=== PATIENT | female | born 1970 | race Caucasian/White ===

== ENCOUNTER 2018-08-07 19:01 | Emergency (ER) | payer OTHER ==
[~2018-08-07] VITALS: Ht 154.9 cm; Wt 68.0 kg
[~2018-08-07 19:01] MED LIST: GABA100C PO; INSU100S22 SUBQ; METF1000 PO; MIC5 PO; STA120 PO
[2018-08-07 19:30] VITALS: BP 172/101
--- NOTE | 2018-08-07 19:40 | NUR ---
EKG DONE IN TRIAGE, PT SENT TO LOBBY EVEN STEADY GAIT, W/ DAUGHTER.
--- NOTE | 2018-08-07 21:09 | NUR ---
PT TO ER BED 1 EVEN STEADY GAIT, W/ DAUGHTER.
--- NOTE | 2018-08-07 21:20 | NUR ---
48yo F TO ER W/C/O INTERMITTENT CHEST PRESSURE/PAIN X4 DAYS RADIATING TO L JAW, L ARM, L LEG, PT STATES EPISODES OF SOB AND BURNING FROM EPIGASTRIC REGION WITH INTERMITENT PAIN. 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 PT DENIES ANY CURRENT SOB, FEVERS, N/V/D AT THIS TIME. ABD SOFT NON TENDER. PMH DM, HTN ALLERGY TO MEDICATION FOR DM BUT CANNOT RECALL NAME.
--- NOTE | 2018-08-07 22:55 | NUR ---
DR YOON AT BEDSIDE FOR PT EVALUATION
[2018-08-07] MEDS ORDERED: NACL 0.9% 1,000 ML IV ONE (23:05)
[2018-08-07] MEDS ORDERED: KETOROLAC 30 MG/ML VIAL IVP ONE (23:05)
[2018-08-07 23:37] LABS: BASOPHILS # (AUTO) 0.1 K/uL (0.00-0.22); BASOPHILS % (AUTO) 0.8 % (0.0-2.0); EOSINOPHILS # (AUTO) 0.3 K/uL (0-0.4); EOSINOPHILS % (AUTO) 3.4 % (0.0-4.0); HEMATOCRIT 34.8 % (36-48); HEMOGLOBIN 11.4 g/dL (12.0-16.0); LYMPHOCYTES # (AUTO) 3.2 K/uL (2.5-16.5); LYMPHOCYTES % (AUTO) 34.9 % (20.5-51.1); MEAN CORPUSCULAR HEMOGLOBIN 27 pg (27-31); MEAN CORPUSCULAR HGB CONC 33 g/dL (33-37); MEAN CORPUSCULAR VOLUME 83.6 fL (80-94); MONOCYTES # (AUTO) 0.6 K/uL (0.8-1.0); NEUTROPHILS # (AUTO) 4.9 K/uL (1.8-7.7); NEUTROPHILS % (AUTO) 53.9 % (42.2-75.2); PLATELET COUNT (AUTO) 307 K/uL (140-450); RED BLOOD CELL COUNT(AUTO) 4.17 MIL/uL (4.20-5.40); RED CELL DISTRIBUTION WIDTH 15.8 % (11.6-13.7); WHITE BLOOD COUNT (AUTO) 9.1 K/uL (4.8-10.8)
[2018-08-07 23:46] LABS: ANION GAP 5.2 (8-16); CARBON DIOXIDE 27.8 mmol/L (21-32)
[2018-08-07 23:52] LABS: ALBUMIN 3.5 g/dL (3.4-5.0); TOTAL BILIRUBIN 0.2 mg/dL (0.0-1.0)
[2018-08-08 00:24] VITALS: BP 159/76
== END 2018-08-08 00:24 | disposition home or self-care (01) ==
LOC: MED 19:01
DX: R07.89 Other chest pain (principal); E11.9 Type 2 diabetes mellitus without complications; I10 Essential (primary) hypertension; Z79.899 Other long term (current) drug therapy
CPT/HCPCS: 36415; 71045; 80053; 82948; 84484; 85025; 93005; 96374; 99285; J1885; J7030

== ENCOUNTER 2019-07-17 17:41 | Emergency (ER) | payer OTHER ==
[~2019-07-17] VITALS: Ht 152.4 cm; Wt 67.6 kg
[2019-07-17 17:47] VITALS: BP 102/59
--- NOTE | 2019-07-17 18:07 | NUR ---
PATIENT PRESENTS TO ED WITH C/O HEADACHE, BLURRY VISION, AND DIZZINESS X 1 DAY. PER PT DAUGHTER, HER FSBS WAS OVER 400 LAST NIGHT, AND ABOUT 250 EARLIER TODAY. FSBS 79 AT THIS TIME. PT STATES SHE GAVE HERSELF 10 UNITS OF HUMALOG AROUND 1530. PT STATED SHE WANTED TO COME IN TO SEE IF IT WAS HER BP CAUSING THE SYMPTOMS. BP 102/59 AT THIS TIME. HX: DM, ANXIETY, AND HTN . DENIES PAIN, VSS; PATIENT POSITIONED FOR COMFORT; HOB ELEVATED; BEDRAILS UP X2; BED DOWN. ER MD MADE AWARE OF PT STATUS.
--- NOTE | 2019-07-17 19:10 | NUR ---
REPORT GIVEN TO SPORTS MANAGEMENT INTERNSHIP NURSE FOR CONTINUE OF CARE.
--- NOTE | 2019-07-17 19:24 | NUR ---
Dr. Mitchell examining patient.
[2019-07-17] MEDS ORDERED: guaiFENesin DM 200/20 MG-10 ML 10 ML UDC PO STA (19:33)
--- NOTE | 2019-07-17 19:40 | NUR ---
XRAY AT BEDSIDE
[2019-07-17 22:40] VITALS: BP 122/61
--- NOTE | 2019-07-17 22:40 | NUR ---
Patient discharged with v/s stable. Written and verbal after care instructions given and explained. Patient verbalized understanding. Ambulatory with steady gait. All questions addressed prior to discharge. Advised to follow up with PMD.
== END 2019-07-17 22:40 | disposition home or self-care (01) ==
LOC: MED 17:41
DX: R51 Headache (principal); R42 Dizziness and giddiness; H53.8 Other visual disturbances; E11.9 Type 2 diabetes mellitus without complications; I10 Essential (primary) hypertension; Z79.4 Long term (current) use of insulin; Z79.899 Other long term (current) drug therapy
CPT/HCPCS: 71045; 81002; 81025; 82948; 99284

== ENCOUNTER 2019-12-02 11:17 | Emergency (ER) | payer OTHER ==
[~2019-12-02] VITALS: Ht 160 cm; Wt 60.8 kg
[2019-12-02 11:47] VITALS: BP 167/72
--- NOTE | 2019-12-02 12:04 | NUR ---
EKG IN TRIAGE AND THEN PT TO ER LOBBY, VS STABLE
--- NOTE | 2019-12-02 12:13 | NUR ---
URINE COLLECTED IN TRIAGE
--- NOTE | 2019-12-02 12:25 | NUR ---
PT AMBULATED TO BED 02
--- NOTE | 2019-12-02 12:30 | NUR ---
c/o chest pain x 1 week. heart sound s1s2 present. no sob. no distress noted. lung sounds clear all thorughout. a & o x4. steady gait. vss. cap refill < 3. nka.
[2019-12-02 13:31] VITALS: BP 167/72
== END 2019-12-02 13:30 | disposition home or self-care (01) ==
LOC: MED 11:17
DX: R07.89 Other chest pain (principal); E11.22 Type 2 diabetes mellitus with diabetic chronic kidney disease; N18.9 Chronic kidney disease, unspecified; I10 Essential (primary) hypertension; Z79.899 Other long term (current) drug therapy
CPT/HCPCS: 71045; 82948; 93005; 99283; Q0092

== ENCOUNTER 2019-12-27 20:25 | Emergency (ER) | payer OTHER ==
[~2019-12-27] VITALS: Ht 152.4 cm; Wt 68.0 kg
[2019-12-27 20:35] VITALS: BP 163/79
--- NOTE | 2019-12-27 20:35 | NUR ---
to bed # 08 ambulatory
--- NOTE | 2019-12-27 20:55 | NUR ---
49 YO FEMALE CO ABD PAIN AND VOMITING SINCE 3P TODAY. PT STATES "I ATE SOMETHING AND I FELT THE POISON ENTER MY STOMACH" PT HAS DM AND TAKES LANTIS AND HUMALOG AT HOME. NKA. PT IN BED IN GOWN WITH ONE SIDE RAIL UP FOR SAFETY.
[2019-12-27] MEDS ORDERED: NACL 0.9% 1,000 ML IV ONE (21:00)
[2019-12-27] MEDS ORDERED: ONDANSETRON 4 MG/2 ML VIAL IVP ONE (21:00)
[2019-12-27 21:23] LABS: BASOPHILS # (AUTO) 0.1 K/uL (0.00-0.22); BASOPHILS % (AUTO) 1.1 % (0.0-2.0); EOSINOPHILS # (AUTO) 0.4 K/uL (0-0.4); EOSINOPHILS % (AUTO) 3.5 % (0.0-4.0); HEMATOCRIT 33.7 % (36-48); HEMOGLOBIN 11.1 g/dL (12.0-16.0); LYMPHOCYTES % (AUTO) 27.2 % (20.5-51.1); MEAN CORPUSCULAR HEMOGLOBIN 28 pg (27-31); MEAN CORPUSCULAR HGB CONC 33 g/dL (33-37); MEAN CORPUSCULAR VOLUME 83.4 fL (80-94); MONOCYTES # (AUTO) 0.5 K/uL (0.8-1.0); MONOCYTES % (AUTO) 4.9 % (1.7-9.3); NEUTROPHILS # (AUTO) 7.1 K/uL (1.8-7.7); NEUTROPHILS % (AUTO) 63.3 % (42.2-75.2); PLATELET COUNT (AUTO) 377 K/uL (140-450); RED BLOOD CELL COUNT(AUTO) 4.04 MIL/uL (4.20-5.40); RED CELL DISTRIBUTION WIDTH 15.2 % (11.6-13.7); WHITE BLOOD COUNT (AUTO) 11.2 K/uL (4.8-10.8)
[2019-12-27 21:41] LABS: ALBUMIN 3.8 g/dL (3.4-5.0); ANION GAP 10.5 (8-16); CARBON DIOXIDE 30.7 mmol/L (21-32); POTASSIUM 4.2 mmol/L (3.5-5.1); TOTAL BILIRUBIN 0.2 mg/dL (0.0-1.0)
--- NOTE | 2019-12-27 21:54 | NUR ---
Note nicole in ED - 12/27/19 at 2157 by [facility] Patient discharged with v/s stable. Written and verbal after care instructions given and explained. Patient verbalized understanding. Ambulatory with steady gait. All questions addressed prior to discharge. Advised to follow up with PMD.
[2019-12-27] MEDS ORDERED: KETOROLAC 30 MG/ML VIAL IVP ONE (22:00)
[2019-12-27] MEDS ORDERED: DICYCLOMINE 20 MG/2 ML VIAL IM ONE (22:00)
--- NOTE | 2019-12-27 22:00 | NUR ---
PATIENT LAYING IN BED. FAMILY AT BEDSIDE. NO NEEDS STATED AT THIS TIME.
[2019-12-27 22:32] VITALS: BP 138/72
--- NOTE | 2019-12-27 22:33 | NUR ---
Patient discharged with v/s stable. Written and verbal after care instructions given and explained. Patient alert, oriented and verbalized understanding of instructions. Ambulatory with steady gait. All questions addressed prior to discharge. ID band removed. Patient advised to follow up with PMD. Rx of REBEL CONWAY given. Patient educated on indication of medication including possible reaction and side effects. Opportunity to ask questions provided and answered.
== END 2019-12-27 22:33 | disposition home or self-care (01) ==
LOC: MED 20:25
DX: K29.70 Gastritis, unspecified, without bleeding (principal); E11.9 Type 2 diabetes mellitus without complications; I10 Essential (primary) hypertension; Z87.448 Personal history of other diseases of urinary system; Z79.899 Other long term (current) drug therapy; Z79.84 Long term (current) use of oral hypoglycemic drugs
CPT/HCPCS: 36415; 80053; 81002; 81025; 83690; 85025; 96361; 96374; 96375; 99284; J0500; J1885; J2405; J7030

== ENCOUNTER 2020-10-01 13:50 | Emergency (ER) | payer OTHER ==
[~2020-10-01] VITALS: Ht 162.6 cm; Wt 68.0 kg
[2020-10-01 14:13] VITALS: BP 184/92
--- NOTE | 2020-10-01 14:44 | NUR ---
Patient transferred to bed 2 by tech. RN evaluating patient at bedside.
--- NOTE | 2020-10-01 14:50 | NUR ---
PT BIB DAUGHTER C/O LEFT KNEE PAIN S/P MECHANICAL FALL 5 DAYS AGO. PT ALSO C/O NAUSEA, EPIGASTRIC PAIN, DIZZINESS FOR 5 DAYS AND SHE HAS BEEN OFF OF HER DM MEDS AND INSULINS FOR THE PAST 5 DAYS DUE TO LOSS OF APPETITE AND FOREIGN BODY SENSATION ON THE THROAT WHILE SWALLOWING. DENIES FEVER, COUGH, SOB, CP, DIARRHA, OR SICK CONTACTS. PMH: DM, HTN
--- NOTE | 2020-10-01 14:50 | NUR ---
Note undone in EDM - 10/01/20 at 1528 by MED PT BIB DAUGHTER C/O RIGHT KNEE PAIN ON 07/15 SEVERITY S/P FALL 5 DAYS AGO. PT ALSO C/O NAUSEA, EPIGASTRIC PAIN, DIZZINESS FOR 5 DAYS AND SHE HAS BEEN OFF OF HER DM MEDS AND INSULINS FOR THE PAST 5 DAYS DUE TO LOSS OF APPETITE AND FOREIGN BODY SENSATION ON THE THROAT WHILE SWALLOWING. DENIES FEVER, COUGH, SOB, CP, DIARRHA, OR SICK CONTACTS. PMH: DM, HTN
--- NOTE | 2020-10-01 15:17 | NUR ---
XRAY IS AT BEDSIDE.
[2020-10-01] MEDS ORDERED: NACL 0.9% 1,000 ML IV ONE ×3 (15:20→16:30)
[2020-10-01] MEDS ORDERED: INSULIN REGULAR, HUMAN 100 UNIT/ML VIAL SUBQ ONE ×2 (15:30→16:30)
[2020-10-01] MEDS ORDERED: HYDROcodone/APAP 5/325 MG 1 TAB TAB PO ONE (15:30)
[2020-10-01 16:07] LABS: BASOPHILS # (AUTO) 0.1 K/uL (0.00-0.22); EOSINOPHILS # (AUTO) 0.1 K/uL (0-0.4); EOSINOPHILS % (AUTO) 1.1 % (0.0-4.0); HEMATOCRIT 36.1 % (36-48); HEMOGLOBIN 11.7 g/dL (12.0-16.0); LYMPHOCYTES % (AUTO) 19.9 % (20.5-51.1); MEAN CORPUSCULAR HEMOGLOBIN 29 pg (27-31); MEAN CORPUSCULAR HGB CONC 33 g/dL (33-37); MEAN CORPUSCULAR VOLUME 88.7 fL (80-94); MONOCYTES # (AUTO) 0.6 K/uL (0.8-1.0); MONOCYTES % (AUTO) 5.8 % (1.7-9.3); NEUTROPHILS # (AUTO) 7.1 K/uL (1.8-7.7); NEUTROPHILS % (AUTO) 72.2 % (42.2-75.2); PLATELET COUNT (AUTO) 394 K/uL (140-450); RED BLOOD CELL COUNT(AUTO) 4.07 MIL/uL (4.20-5.40); RED CELL DISTRIBUTION WIDTH 14.1 % (11.6-13.7); WHITE BLOOD COUNT (AUTO) 9.8 K/uL (4.8-10.8)
[2020-10-01 16:13] LABS: ALBUMIN 3.9 g/dL (3.4-5.0); CARBON DIOXIDE 21.9 mmol/L (21-32); CREATININE 1.4 mg/dL (0.6-1.3); POTASSIUM 4.9 mmol/L (3.5-5.1); TOTAL BILIRUBIN 0.4 mg/dL (0.0-1.0)
[2020-10-01] MEDS ORDERED: CLON0.1T42 PO (16:17)
[2020-10-01] MEDS ORDERED: ESCI5TAB PO (16:17)
[2020-10-01] MEDS ORDERED: INSU100I7 SQ (16:17)
[2020-10-01] MEDS ORDERED: HUM SUBQ (16:17)
[2020-10-01] MEDS ORDERED: BUS5 PO (16:17)
[2020-10-01] MEDS ORDERED: SPIR25TA PO (16:17)
[2020-10-01] MEDS ORDERED: ATOR10TA PO (16:17)
--- NOTE | 2020-10-01 16:17 | NUR ---
Glucose 585--critical value received from lab. Dr Plummer made aware
[2020-10-01 17:52] LABS: ANION GAP 15.4 (8-16); CARBON DIOXIDE 21.4 mmol/L (21-32); POTASSIUM 4.8 mmol/L (3.5-5.1)
[2020-10-01 18:50] VITALS: BP 171/74
--- NOTE | 2020-10-01 18:50 | NUR ---
Patient discharged with v/s stable. Written and verbal after care instructions given and explained. Patient alert, oriented and verbalized understanding of instructions. WC assisted by daughter. All questions addressed prior to discharge. ID band removed. Patient advised to follow up with PMD. Rx of Ibuprofen and [place] given. Patient educated on indication of medication including possible reaction and side effects. Opportunity to ask questions provided and answered.
== END 2020-10-01 18:50 | disposition home or self-care (01) ==
LOC: MED 13:50
DX: M25.561 Pain in right knee (principal); R42 Dizziness and giddiness; R11.0 Nausea; E11.9 Type 2 diabetes mellitus without complications; I10 Essential (primary) hypertension; W19.XXXA Unspecified fall, initial encounter; Y93.89 Activity, other specified; Y92.89 Other specified places as the place of occurrence of the external cause; Y99.8 Other external cause status
CPT/HCPCS: 36415; 73562; 80048; 80053; 81002; 82948; 83690; 85025; 93005; 96360; 96361; 96372; 99285; J1815; J7030

== ENCOUNTER 2020-11-09 16:48 | Emergency (ER) | payer OTHER ==
[~2020-11-09 16:48] MED LIST changes: +ATOR10TA PO; +BUS5 PO; +CLON0.1T42 PO; +ESCI5TAB PO; -GABA100C PO; +HUM SUBQ; +INSU100I7 SQ; -MIC5 PO; +SPIR25TA PO; -STA120 PO
--- NOTE | 2020-11-09 19:05 | NUR ---
Patient discharged with v/s stable. Written and verbal after care instructions given and explained. Patient alert, oriented and verbalized understanding of instructions. Ambulatory with steady gait. All questions addressed prior to discharge. ID band removed. Patient advised to follow up with PMD. Rx of Miralax, ibuprofen 400mg, Docusate sodium 100mg mineral oil given. Patient educated on indication of medication including possible reaction and side effects. Opportunity to ask questions provided and answered.
== END 2020-11-09 18:35 | disposition home or self-care (01) ==
LOC: MED 16:48
DX: K59.00 Constipation, unspecified (principal); R11.0 Nausea; E11.9 Type 2 diabetes mellitus without complications; I10 Essential (primary) hypertension; Z79.4 Long term (current) use of insulin; Z79.899 Other long term (current) drug therapy; Z98.890 Other specified postprocedural states
CPT/HCPCS: 74018; 99283

== ENCOUNTER 2020-11-13 07:03 | Emergency (ER) | payer OTHER ==
[~2020-11-13] VITALS: Ht 152.4 cm; Wt 68.0 kg
[2020-11-13 07:31] VITALS: BP 164/73
--- NOTE | 2020-11-13 08:14 | NUR ---
50 yo f biba als from home for c/o n/v and low blood sugar. current sugar 263. in ed, vss. no active vomiting at this time. abdomen soft, nontender. pt sitting on wheelchair in tent. ermd made aware of patient status. pmh: htn, dm nka
--- NOTE | 2020-11-13 08:16 | NUR ---
rpimitivo swab done. handed to annabella chua.
[2020-11-13 08:46] LABS: BASOPHILS % (AUTO) 0.3 % (0.0-2.0); EOSINOPHILS % (AUTO) 0.3 % (0.0-4.0); HEMATOCRIT 32.8 % (36-48); HEMOGLOBIN 10.7 g/dL (12.0-16.0); LYMPHOCYTES # (AUTO) 2.3 K/uL (2.5-16.5); LYMPHOCYTES % (AUTO) 18.4 % (20.5-51.1); MEAN CORPUSCULAR HEMOGLOBIN 28 pg (27-31); MEAN CORPUSCULAR HGB CONC 33 g/dL (33-37); MEAN CORPUSCULAR VOLUME 85.8 fL (80-94); MONOCYTES # (AUTO) 0.8 K/uL (0.8-1.0); MONOCYTES % (AUTO) 6.6 % (1.7-9.3); NEUTROPHILS # (AUTO) 9.5 K/uL (1.8-7.7); NEUTROPHILS % (AUTO) 74.4 % (42.2-75.2); PLATELET COUNT (AUTO) 421 K/uL (140-450); RED BLOOD CELL COUNT(AUTO) 3.82 MIL/uL (4.20-5.40); RED CELL DISTRIBUTION WIDTH 14.7 % (11.6-13.7); WHITE BLOOD COUNT (AUTO) 12.8 K/uL (4.8-10.8)
--- NOTE | 2020-11-13 08:53 | NUR ---
BS [address] YOON MADE AWARE.
[2020-11-13 09:14] LABS: PROTHROMBIN TIME 9.8 secs (10.8-13.4)
[2020-11-13] MEDS ORDERED: ONDANSETRON 4 MG ODT PO ONE (09:15)
[2020-11-13 09:16] LABS: ANION GAP 17.8 (8-16); CARBON DIOXIDE 21.4 mmol/L (21-32); POTASSIUM 4.2 mmol/L (3.5-5.1)
[2020-11-13 09:21] LABS: ALBUMIN 3.4 g/dL (3.4-5.0); TOTAL BILIRUBIN 1.9 mg/dL (0.0-1.0)
[2020-11-13 10:56] VITALS: BP 164/73
--- NOTE | 2020-11-13 10:57 | NUR ---
Patient discharged with v/s stable. Written and verbal after care instructions given and explained. Patient alert, oriented and verbalized understanding of instructions. Ambulatory with steady gait. All questions addressed prior to discharge. ID band removed. Patient advised to follow up with PMD. Rx of MIRALAX POWDER, ZOFRAN, MINERAL OIL given. Patient educated on indication of medication including possible reaction and side effects. Opportunity to ask questions provided and answered.
== END 2020-11-13 10:57 | disposition home or self-care (01) ==
LOC: MED 07:03
DX: E11.65 Type 2 diabetes mellitus with hyperglycemia (principal); K59.00 Constipation, unspecified; I10 Essential (primary) hypertension; Z87.448 Personal history of other diseases of urinary system; Z79.4 Long term (current) use of insulin; Z79.899 Other long term (current) drug therapy; Z20.828 Contact with and (suspected) exposure to other viral communicable diseases
CPT/HCPCS: 36415; 71045; 74018; 80053; 84484; 85025; 85610; 85730; 87426; 93005; 99285; Q0162

== ENCOUNTER 2022-10-20 13:37 | Observation (INO) | payer OTHER ==
[~2022-10-20] VITALS: Ht 157.5 cm; Wt 64.4 kg
[~2022-10-20 13:37] MED LIST changes: +CLON0.1T16 PO; -CLON0.1T42 PO; +METF-1274 PO; -METF1000 PO
[2022-10-20 13:46] VITALS: BP 188/93
--- NOTE | 2022-10-20 13:57 | NUR ---
52YO FEMALE PT C/O INCREASED SHARP 8/10 CHEST PAIN XTODAY. REPORTS SUDDEN CONSTANT ONSET X1WEEK W/ RADIATION TO L SHOULDER. PAIN AT MOST ON DEEP INHALATION . +DIARRHEA -BLOOD X2DAYS. NOTES PREVIOUS S/S YEARS AGO THAT SELF RELIEVED. NARESH CLEAR LUNG SOUNDS. DENIES TAKING MEDICATION FOR PAIN , N/D, SOB, FEVER OR CHILLS. PT AAOX4, NO VISIBLE DISTRESS. RESPIRATIONS EVEN AND UNLABORED. HX:DIABETES, HTN NKA
[2022-10-20] MEDS ORDERED: ALBUTEROL 0.083% 2.5 MG/3 ML NEBU INH ONE (14:40)
[2022-10-20 14:50] LABS: BASOPHILS # (AUTO) 0.1 K/uL (0.00-0.22); BASOPHILS % (AUTO) 1.2 % (0.0-2.0); EOSINOPHILS # (AUTO) 0.3 K/uL (0-0.4); EOSINOPHILS % (AUTO) 3.8 % (0.0-4.0); HEMATOCRIT 36.4 % (36-48); LYMPHOCYTES # (AUTO) 3.2 K/uL (2.5-16.5); LYMPHOCYTES % (AUTO) 40.1 % (20.5-51.1); MEAN CORPUSCULAR HEMOGLOBIN 29 pg (27-31); MEAN CORPUSCULAR HGB CONC 33 g/dL (33-37); MEAN CORPUSCULAR VOLUME 86.9 fL (80-94); MONOCYTES # (AUTO) 0.5 K/uL (0.8-1.0); MONOCYTES % (AUTO) 5.9 % (1.7-9.3); NEUTROPHILS # (AUTO) 3.9 K/uL (1.8-7.7); PLATELET COUNT (AUTO) 307 K/uL (140-450); RED BLOOD CELL COUNT(AUTO) 4.18 MIL/uL (4.20-5.40)
[2022-10-20 15:10] LABS: ALBUMIN 3.4 g/dL (3.4-5.0); ANION GAP 11.9 (8-16); ASPARTATE AMINOTRANSFERASE 12 U/L (15-37); CARBON DIOXIDE 28.5 mmol/L (21-32); CHLORIDE 104 mmol/L (98-107); CREATININE 1.3 mg/dL (0.6-1.3); GFR ARICAN-AMERICAN 56 mL/min (>90); GLUCOSE 236 mg/dL (74-106); POTASSIUM 4.4 mmol/L (3.5-5.1); SODIUM SERUM 140 mmol/L (136-145); TOTAL BILIRUBIN 0.2 mg/dL (0.0-1.0); UREA NITROGEN, BLOOD 32 mg/dL (7-18)
[2022-10-20] MEDS ORDERED: ASPIRIN 325 MG TAB PO ONE (15:30)
[2022-10-20] MEDS ORDERED: NITROGLYCERIN 0.4 MG TAB SL ONE (15:30)
[2022-10-20] MEDS ORDERED: HYDR-3004 PO (15:47)
[2022-10-20] MEDS ORDERED: ASPI81EC PO (15:47)
[2022-10-20] MEDS ORDERED: FURO40TA9 PO (15:47)
[2022-10-20] MEDS ORDERED: METO25TA PO (15:47)
[2022-10-20] MEDS ORDERED: METO10TA PO (15:50)
[2022-10-20] MEDS ORDERED: METF-713 PO (15:50)
[2022-10-20] MEDS ORDERED: METF-336 PO (15:52)
[2022-10-20] MEDS ORDERED: ATOR80TA27 PO (15:56)
[2022-10-20] MEDS ORDERED: OMEP40EC23 PO (15:56)
[2022-10-20] MEDS ORDERED: EMPA10TA PO (15:58)
[2022-10-20] MEDS ORDERED: NORT10CA PO (15:58)
[2022-10-20] MEDS ORDERED: AMLO-3 PO (15:58)
[2022-10-20] MEDS ORDERED: FERR325E14 PO (15:58)
--- NOTE | 2022-10-20 18:19 | NUR ---
pt provided w/ dinner. pt awake , repositioned and eating in bed.
[2022-10-20] MEDS ORDERED: MORPHINE SULFATE 2 MG/ML SYR IVP PRN ×2 (18:20)
[2022-10-20] MEDS ORDERED: ACETAMINOPHEN 325 MG TAB PO PRN (18:20)
[2022-10-20] MEDS ORDERED: NITROGLYCERIN 0.4 MG TAB SL PRN (18:20)
[2022-10-20] MEDS ORDERED: ZOLPIDEM 5 MG TAB PO PRN (18:20)
[2022-10-20] MEDS ORDERED: LORazepam 1 MG TAB PO PRN (18:20)
--- NOTE | 2022-10-20 19:00 | NUR ---
pt provided w/ dinner. pt awake and eating in bed
[2022-10-20 19:04] LABS: PROTHROMBIN TIME 9.8 secs (10.8-13.4)
--- NOTE | 2022-10-20 19:13 | NUR ---
REPORT GIVEN TO ELIZAEBTH EUCEDA. TRANSFER OF CARE AT THIS TIME
[2022-10-20 19:18] LABS: AMYLASE 67 U/L (25-115); LIPASE 161 U/L (73-393)
--- NOTE | 2022-10-20 19:28 | NUR ---
PT IS AWAKE AND ALERT. ALL NEEDS MET AT THIS TIME. BED LOCKED IN LOWEST POSITION, SIDE RAILS X2 FOR SAFETY.
--- NOTE | 2022-10-20 20:11 | NUR ---
Patient will be admitted to care of DR. DELGADILLO. Admited to TELE. Will go to [id number]. Belongings list completed. Report to KINSEY GOTTI.
--- NOTE | 2022-10-20 20:15 | NUR ---
PT TRANSPORTED FROM ER VIA GURNEY TO HER ROOM. PT IS AAOX4 B[place]NA[place] SPEAKER. PT IS ON RA. PT CAME IN WITH COMPLAINS OF CHEST PAIN FOR 1 WEEK AND TODAY BEING WORST. PT STATES SHE STILL HAS CHEST PAIN BUT IT IS NOT BAD AND ONLY GETS WORST WHEN MOVING AROUND OR WALKING. PAIN IS TOLERABLE OF NOW. PT HAS RIGHT AC 20 GAUGE SALINE LOCK. PT IS AMBULATORY. PT EDUCATED CARDIAC REHAB NURSE LIGHT SYSTEM AND ROOM ENVIRONMENT. SAFETY PRECAUTIONS TAKEN. WILL CONTINUE TO MONITOR THE PT.
[2022-10-20 20:23] VITALS: BP 157/73
[2022-10-20] MEDS: INSULIN LISPRO SLIDING SCALE 100 UNITS/ML VIAL SUBQ SCH (20:38)
[2022-10-20] MEDS: BLOOD GLUCOSE MONITORING 1 DEV DEV FS SCH (20:40)
[2022-10-20] MEDS: SODIUM CHLORIDE FLUSH 10 ML SYR IVF SCH (20:41)
--- NOTE | 2022-10-20 20:44 | NUR ---
CHECKED PT BLOOD GLUCOSE. PT GLUCOSE IS 380. 10 UNITS OF HUMALOG GIVEN PER SLIDING SCALE.
[2022-10-21] VITALS: BP 130/60
--- NOTE | 2022-10-21 | NUR ---
VITAL SIGNS TAKEN. VITAL SIGNS STABLE. PT HAS NO COMPLAINS RIGHT NOW. WILL CONTINUE TO MONITOR THE PT.
[2022-10-21 02:04] LABS: APPEARANCE,URINE CLEAR (CLEAR); BILIRUBIN,URINE NEGATIVE (NEGATIVE); BLOOD, URINE NEGATIVE (NEGATIVE); COLOR,URINE YELLOW (YELLOW); LEUKOCYTE ESTERASE ,URINE NEGATIVE (NEGATIVE); NITRITE, URINE NEGATIVE (NEGATIVE); UGLUCOSE 3+ (NEGATIVE)
--- NOTE | 2022-10-21 02:20 | NUR ---
OBSERVED PT. PT IS SLEEPING COMFORTABLY IN BED. PT NOT IN ANY ACUTE DISTRESS. VISIBLE RISE AND CHEST FALL. SAFETY PRECAUTIONS TAKEN. WILL CONTINUE TO MONITOR THE PT.
[2022-10-21 02:28] LABS: BARBITURATE, URINE NEGATIVE ng/ml (NEG <=200); BENZODIAZEPINE, URINE NEGATIVE ng/mL (NEG <=200); CANNABINOID, URINE NEGATIVE ng/mL (NEG <=50); COCAINE, URINE NEGATIVE ng/mL (NEG <=300); OPIATE, URINE NEGATIVE ng/mL (NEG <=2000); PHENCYCLIDINE SCREEN,URINE NEGATIVE ng/mL (NEG <=25)
[2022-10-21 02:44] LABS: RBC,URINE 0-5 /HPF (0-5); WBC,URINE 0-5 /HPF (0-5)
--- NOTE | 2022-10-21 03:59 | NUR ---
PT COMPLAINED OF CHEST PAIN 06/14. PT WANTED SOMETHING FOR PAIN. MORPHINE WAS GIVEN. WILL CONTINUE TO MONITOR THE PT.
[2022-10-21 04:00] VITALS: BP 184/79
[2022-10-21] MEDS: SODIUM CHLORIDE FLUSH 10 ML SYR IVF SCH ×3 (04:04→20:38)
--- NOTE | 2022-10-21 04:35 | NUR ---
PT BLOOD PRESSURE IS 184/79. MESSAGED DR. DELGADILLO FOR ORDERS. WAITING FOR REPLY.
[2022-10-21 06:13] LABS: ANION GAP 12.4 (8-16); CARBON DIOXIDE 28.4 mmol/L (21-32); POTASSIUM 4.8 mmol/L (3.5-5.1)
[2022-10-21 06:22] LABS: CHOL/HDL RATIO 2.1 (1-4.5); MAGNESIUM 2.1 mg/dL (1.8-2.4)
[2022-10-21] MEDS: BLOOD GLUCOSE MONITORING 1 DEV DEV FS SCH ×4 (06:37→20:38)
[2022-10-21] MEDS: INSULIN LISPRO SLIDING SCALE 100 UNITS/ML VIAL SUBQ SCH ×4 (06:37→20:37)
--- NOTE | 2022-10-21 07:36 | NUR ---
ENDORSED PT TO DAY SHIFT RN FOR CONTINUITY OF CARE. PT IS STABLE.
[2022-10-21 08:00] VITALS: BP 142/63
--- NOTE | 2022-10-21 08:00 | NUR ---
RECEIVED REPORT FROM YARN PREPARATION SUPERVISOR AT BEDSIDE FOR CONTINUITY OF CARE. PATIENT ALERT ORIENTED X4, NOT IN ANY DISTRESS NOTED. DENIES CHEST PAIN AT THIS TIME, SHE VERBALIZED THAT IT COMES AND GO. CALL LIGHT WITHIN REACH. WILL CONTINUE TO MONITOR.
[2022-10-21] MEDS: lisinopriL 20 MG TAB PO SCH (10:25)
--- NOTE | 2022-10-21 11:02 | NUR ---
SEEN BY DR. DELGADILLO WITH ORDERS. PATIENT RESTING IN BED. DENIES CHEST PAIN.
[2022-10-21 12:00] VITALS: BP 171/63
--- NOTE | 2022-10-21 12:15 | NUR ---
PATIENT HAS BEEN SCREENED AND CATEGORIZED MODERATE NUTRITION RISK. PATIENT WILL BE SEEN WITHIN 3-5 DAYS OF ADMISSION. 10/23/2212/21/[address]
[2022-10-21 16:00] VITALS: BP 141/68
--- NOTE | 2022-10-21 17:56 | NUR ---
PATIENT AMBULATES TO THE BATHROOM, DENIES CHEST PAIN. WILL CONTINUE TO MONITOR.
--- NOTE | 2022-10-21 19:09 | NUR ---
report given to the caustic cresylate shift superintendent for continuity of care. patient in stable condition.
--- NOTE | 2022-10-21 19:15 | NUR ---
RECEIVED BEDSIDE REPORT FROM DAY SHIFT RN FOR CONTINUITY OF CARE. PT IS AAOX4 [place]LAND[place] SPEAKER. PT IS AMBULATORY. PT COMPLAINS OF CHEST PAIN BUT IT IS 2/10 TOLERABLE. PT HAS RIGHT AC 20 GAUGE SALINE LOCK. CALL LIGHT WITHIN REACH. ALL SAFETY MEASURES TAKEN. WILL CONTINUE TO MONITOR THE PT.
[2022-10-21 20:00] VITALS: BP 138/57
[2022-10-21] MEDS: METOPROLOL 25 MG TAB PO SCH (20:39)
[2022-10-21] MEDS: amLODIPine 5 MG TAB PO SCH (20:40)
--- NOTE | 2022-10-21 20:45 | NUR ---
SCHEDULE MEDICATIONS GIVEN. NO AVERSE REACTION NOTED. WILL CONTINUE TO MONITOR THE PT.
[2022-10-21] MEDS ORDERED: ATORVASTATIN 80 MG TAB PO SCH (21:00)
[2022-10-22] VITALS: BP 93/47
--- NOTE | 2022-10-22 00:05 | NUR ---
OBSERVED PT. PT IS AWAKE. PT COMPLAINS OF CHEST PAIN 2/10. TOLERABLE FOR HER. NO OTHER COMPLAINS. WILL CONTINUE TO MONITOR THE PT.
--- NOTE | 2022-10-22 02:40 | NUR ---
OBSERVED PT. PT SLEEPING COMFORTABLY IN BED. PT NOT IN ANY RESPIRATORY DISTRESS. PT SATING 96%. SAFETY PRECAUTIONS TAKEN. WILL CONTINUE TO MONITOR THE PT.
[2022-10-22 04:00] VITALS: BP 104/49
[2022-10-22] MEDS: SODIUM CHLORIDE FLUSH 10 ML SYR IVF SCH ×2 (05:43→12:30)
--- NOTE | 2022-10-22 06:30 | NUR ---
BLOOD GLUCOSE CHECK. 4 UNITS OF HUMALOG GIVEN FOR 206 BLOOD GLUCOSE.
[2022-10-22] MEDS: INSULIN LISPRO SLIDING SCALE 100 UNITS/ML VIAL SUBQ SCH ×3 (06:34→17:07)
[2022-10-22] MEDS: BLOOD GLUCOSE MONITORING 1 DEV DEV FS SCH ×3 (06:35→16:53)
--- NOTE | 2022-10-22 07:22 | NUR ---
ENDORSED PT TO DAY SHIFT KINSEY DANIEL FOR CONTINUITY OF CARE. PT IS STABLE.
[2022-10-22 08:00] VITALS: BP 121/53
[2022-10-22] MEDS ORDERED: INSULIN LANTUS 100 UNITS/ML 10 ML VIAL SUBQ SCH (09:00)
[2022-10-22] MEDS ORDERED: ECOTRIN 81 MG TABEC PO SCH (09:00)
[2022-10-22] MEDS: amLODIPine 5 MG TAB PO SCH (09:04)
[2022-10-22] MEDS: METOPROLOL 25 MG TAB PO SCH (09:04)
[2022-10-22] MEDS: lisinopriL 20 MG TAB PO SCH (09:05)
[2022-10-22 12:00] VITALS: BP 135/91
[2022-10-22 16:00] VITALS: BP 158/66
[2022-10-22 16:10] VITALS: BP 158/66
--- NOTE | 2022-10-22 17:52 | NUR ---
DISCHARGE PATIENT HOME IN STABLE CONDITION PER PCP ORDER, AND DRAWER IN HAND SAW PATIENT BEFORE DISCHARGE PATIENT. DISCHARGE INSTRUCTION GIVE, DISCHARGE CONSENT SIGNED, IV ACCESS, WRIST BAND, AND TEL MONITOR REMOVED BEFORE WHEEL PATIENT OUT THE FACILITY Addendum: 10/22/22 at 1846 by Maddi Younger RN PATIENT JUST WALK OUT THE FACILITY WITH HER RIDE OVERLOCK WAISTLINE JOINER WITH NO ACUTE DISTRESS NOTED.
[2022-10-23] MEDS ORDERED: INSULIN LANTUS 100 UNITS/ML 10 ML VIAL SUBQ SCH (09:00)
== END 2022-10-22 18:40 | disposition home or self-care (01) ==
LOC: MED 13:37 → MTU 17:09 → MMU 19:21
PROVIDERS: ADMIT Hospitalist; ATTEND Internal Medicine Cardiovascular Disease
DX: R07.89 Other chest pain (principal); Z20.822 Contact with and (suspected) exposure to COVID-19; N17.9 Acute kidney failure, unspecified; I10 Essential (primary) hypertension; E11.9 Type 2 diabetes mellitus without complications; E78.5 Hyperlipidemia, unspecified; Z79.899 Other long term (current) drug therapy; Z90.710 Acquired absence of both cervix and uterus
CPT/HCPCS: 36415; 71045; 80048; 80053; 80061; 80305; 81001; 82150; 82948; 83690; 83735; 84484; 85025; 85379; 85610; 85730; 87081; 87086; 87426; 93005; 94760; 96372; 96374; 99285; G0378; J1815; J2270; J7613; Q0092